=== PATIENT | male | born 2000 | race Caucasian/White ===

== ENCOUNTER 2019-07-15 10:36 | Emergency (ER) | payer MEDICAID ==
[~2019-07-15] VITALS: Ht 165.1 cm; Wt 71.7 kg
--- NOTE | 2019-07-15 10:47 | NUR ---
Patient ambulated to bed 7 with family. RN evaluating patient at bedside.
[2019-07-15 10:50] VITALS: BP 136/81
--- NOTE | 2019-07-15 10:56 | NUR ---
19 YO MALE CO OF RIGHT BIG TOE PAIN X2W. STATED THAT HE HAS HAD AN INGROWN TOENAIL FOR OVER A YEAR, WENT TO A [place]AVE ABOUT 2 WEEKS AGO AND IT GOT STEPPED ON. PT HAS PAIN OF 8/10. RIGHT BIG TO IS SWOLLEN AND RED WITH SLIGHT PUS. PT STATES THAT HE ONLY HAS PAIN WITH PRESSURE. PT HAS NO MED HX AND IS NOT TAKING ANY RX MEDS AT THIS TIME. PT LAYING IN BED WITH ONE SIDE RAIL UP FOR SAFETY.
--- NOTE | 2019-07-15 11:09 | NUR ---
WENDY Hearn is evaluating the patient at bedside.
[2019-07-15] MEDS ORDERED: BACITRACIN OINT 500 UNITS/GM PKT TP ONE (11:15)
[2019-07-15] MEDS ORDERED: LIDOCAINE MPF 1% 10 MG/ML VIAL INJ ONE (11:15)
--- NOTE | 2019-07-15 11:33 | NUR ---
WENDY RODRIGUEZ IS AT BEDSIDE DOING PROCEDURE
[2019-07-15 12:48] VITALS: BP 136/81
--- NOTE | 2019-07-15 12:51 | NUR ---
Patient discharged with v/s stable. Written and verbal after care instructions given and explained. Patient alert, oriented and verbalized understanding of instructions. Ambulatory with steady gait. All questions addressed prior to discharge. ID band removed. Patient advised to follow up with PMD. Rx of KEFLEX AND IBUPROFEN given. Patient educated on indication of medication including possible reaction and side effects. Opportunity to ask questions provided and answered.
== END 2019-07-15 12:51 | disposition home or self-care (01) ==
LOC: MED 10:36
DX: L60.0 Ingrowing nail (principal)
CPT/HCPCS: 11750; 99285; J2001; 99284